=== PATIENT | female | born 1965 | race Caucasian/White ===

== ENCOUNTER 2020-12-29 04:59 | Inpatient (IN) ==
--- NOTE | 2020-12-13 11:31 | PAT Medication Instructions ---
Medication Instructions Date of Service December 13, 2020 Home Medications meloxicam 15 mg PO QAM simvastatin 10 mg PO HS venlafaxine 150 mg PO HS ASK your surgeon for instructions meloxicam 15 mg PO QAM Take evening before surgery simvastatin 10 mg PO HS venlafaxine 150 mg PO HS NOTHING TO EAT OR DRINK AFTER MIDNIGHT. Other Notes If you have any questions please call us at [phone] or [phone] or [phone] or [phone]
--- NOTE | 2020-12-13 11:44 | Anesthesiology Consultation ---
Date of Service December 13, 2020 Assessment & Plan (1) Encounter for pre-operative examination: COVID Status: As of 12/13 assessment, patient denies travel to endemic area, known exposure/sick contacts, or symptoms of COVID19. Patient advised to adhere to social distancing guidelines, wear a mask in public and avoid large crowds or unnecessary travel in the 2 weeks leading up to surgery. Preoperative COVID19 testing to be completed prior to surgery per surgeon's arrangements ([place] 2-3 days prior per pt). Patient encouraged to be extra cautious/conscientious with COVID precautions between COVID testing and surgery. Chart Review Chart Review: Acceptable Risk for Surgery (pending pcp clearance 12/15) and Patient seen in Pre Admission Testing Teaching & Discussion Instructed NPO after midnight before surgery, except medications with 15 cc of water. Medication instructions provided according to the PAT guidelines. History Surgery Operation Date: 12/29/20 08:50 Proposed Procedures p Left Total Hip Arthroplasty - Trevor Smith MD Height/Weight Height: 5 ft 8 in Weight: 90.1 kg Allergies Allergy/AdvReac Type Severity Reaction Status Date / Time No Known Allergies Allergy Verified 12/09/20 11:32 Medications Home Medications Medication Instructions Recorded Confirmed Last Taken meloxicam 15 mg PO QAM 12/09/20 12/09/20 Unknown simvastatin 10 mg PO HS 12/09/20 12/09/20 Unknown venlafaxine 150 mg PO HS 12/09/20 12/09/20 Unknown Past Medical History Medical History Anxiety Depression Hyperlipidemia Osteoarthritis Scoliosis Exercise / Class Metabolic Activity II 4-5 Yardwork/Stairs/Walk up hill Past Family History Family History Mother Breast cancer Past Surgical History Surgical History History of adenoidectomy History of arthroscopy right knee History of colonoscopy History of esophagogastroduodenoscopy (EGD) History of hysterectomy History of tonsillectomy History of tooth extraction Hx of removal of cyst from tailbone Past Anesthesia History No Hx of Anesthesia Complications and No Family Hx of Anesthesia Complications History of PONV No Hx of PONV and Hx of Motion Sickness Social History Smoking Status: Former smoker tobacco type: cigarettes Do You Dip or Chew Tobacco: No Smoking End Date: quit 11/2020 Hx Alcohol Use: Yes Alcohol type: beer and wine alcohol intake frequency: a few times a week Hx Substance Use: No substance use type: does not use Review of Systems Pt denies any recent chest pain, shortness of breath, palpitations, cough, fever, URI, or uncontrolled acid reflux. Physical Exam Vital Signs BP: 105/74 P: 70bpm SPO2: 98% RA T: 97.7 F R: 16 ENMT Mouth: no dental restorations, no chipped teeth and no loose teeth Thyromental Distance: < 3.5 Finger Breadths (3) Mallampati Class: II Neck normal visual inspection; neck extension not limited Respiratory normal respiratory effort, lungs clear to auscultation Cardiovascular RRR, no murmur, no edema Lab Results Anesthesia Preop Results Results Anesthesia Widget: WBC 9.30 K/uL (4.8-10.8) 12/13/20 Hgb 12.5 g/dL (12.0-16.0) 12/13/20 Hct 38.1 % (37-47) 12/13/20 Plt 303 K/uL (130-400) 12/13/20 Na 138 mmol/L (136-145) 12/13/20 K 3.7 mmol/L (3.5-5.1) 12/13/20 Cl 107 mmol/L (98-107) 12/13/20 CO2 26 mmol/L (21-32) 12/13/20 BUN 18 mg/dl (7-18) 12/13/20 Creat 0.75 mg/dl (0.6-1.2) 12/13/20 Glucose Level 87 mg/dl (70-99) 12/13/20 PT 10.5 Seconds (9.0-12.0) 12/13/20 INR 1.0 (0.9-1.1) 12/13/20 HA1c 5.4 % (4.5-5.6) 12/13/20 Urine Color Yellow 12/13/20 Urine Appearance Clear (Clear) 12/13/20 Urine pH 7.0 (4.5-7.5) 12/13/20 Urine Specific [place] 1.012 (1.000-1.030) 12/13/20 Urine Protein Negative (Negative) 12/13/20 Urine Glucose (UA) Negative (Negative) 12/13/20 Urine Ketones Negative (Negative) 12/13/20 Urine Blood Negative (Negative) 12/13/20 Urine Nitrite Negative (Negative) 12/13/20 Urine Bilirubin Negative (Negative) 12/13/20 Urine Urobilinogen Negative (Negative) 12/13/20 Urine Leukocyte Esterase Negative (Negative) 12/13/20 Blood Type AB Positive 12/13/20 Antibody Screen NEGATIVE 12/13/20 Testing Electrocardiogram Date: 12/13/20 Findings: + NSR @ (66bpm) Low voltage QRS. Borderline EKG
--- NOTE | 2020-12-14 16:12 | History & Physical Report ---
Date of Service December 14, 2020 Assessment & Plan Admission and Anticipated Discharge Date Admission Date: PRE-OP Diagnosis: Left hip osteoarthritis Planned Procedure: Left total hip arthroplasty Plan: Patient is scheduled to undergo this procedure at the [facility] on December with Dr. Trevor Smith. Risks and complications of the procedure such as: Infection, bleeding, pain, scarring, nerve blood vessel damage, weakness, wound problems, stiffness, incomplete relief of symptoms, hardware failure, hardware loosening, wear, fracture, tendon or ligament injury, dislocation, leg length inequality, blood clots, embolism, heart attack, stroke and were explained to the patient at her visit today by Dr. Smith. Informed consent from the procedure was obtained. Patient also understands risks of proceeding with surgical intervention during the COVID-19 pandemic. Currently she is asymptomatic and understands that she will need to be tested 2 to 3 days prior to the surgery. Patient is scheduled to meet with anesthesia at the hospital later this morning, and while there she will obtain a CBC with differential, complete metabolic panel, PT/INR, blood type and screen, urinalysis, urine culture and sensitivity, EKG, hemoglobin A1c and a nasal culture for MRSA. Patient states she has an appointment scheduled with her primary care provider Dr. Calvin early next week for her preoperative medical clearance. During today's visit we discussed total hip precautions, reviewed the total hip packet, talked about discharge planning, the use of antibiotics following joint placement surgery, lectures offered by [facility] in regards to joint replacement surgery via zoom. I also advised the patient to purchase a hip kit, I raised toilet seat, shower chair. She states she has a walker she will bring with her on the day of the surgery. She also has a cane that she will transition to once she is able to. I advised her she will need to use an abduction pillow for the first 6 weeks postoperatively. Patient will be discharged from the hospital with a prescription for narcotic pain medication. She states she would like to resume her meloxicam for postoperative pain and inflammation relief. I advised her that she will be on a baby aspirin twice daily for blood clot prevention. I also recommended that she can supplement with extra strength Tylenol for additional pain relief. Patient is scheduled for 2-week postoperative follow-up visit with Richie Castellanos PA-C on January 13 at 8:15 AM. Patient verbalized understanding of all information provided during today's visit. She thanked us for the care that she received. If she has questions or concerns should arise prior to her surgery, she will contact clinic. History of Present Illness Chief Complaint: Chief Complaint: Left hip pain Primary Care Provider: NO PCP History of Present Illness (including history relevant to procedure): This 55-year-old female presents the clinic today for preoperative history and physical. Patient was initially evaluated by Dr. Charisse maxwell in April of 2020 for persistent left hip pain, and was given the diagnosis of left hip arthritis at that time. She was referred for hip replacement then, but has tried to put it off as long as possible. She says her symptoms have worsened since then. She says she limps every time she walks now. She has to nonreciprocate stairs. She is taking Tylenol and meloxicam, which gives her some relief but nothing long lasting. She is having trouble gardening. She has been able to sleep through the night usually, but sometimes has some difficulty getting asleep. Review Of Systems: A 14 point review of systems is performed and is unremarkable except for those things stated in the HPI and past medical history. Past Medical History: Problems: Pre-op exam Arthritis of left hip Hypercholesterolemia Anxiety/depression Obesity Procedure History Procedure Procedure Date Comments Hysterectomy Right knee arthroscopy Tailbone cyst excision Tonsillectomy/adenoidectomy 2014 1988 1984 1969 Allergies and Sensitivities: NKA Family history: Heart disease, cancer, hypercholesterolemia Social history: Patient states that she was 1/2 pack/day smoker but quit in November 2020. She regularly consumes 5 alcoholic beverages per week. She denies any illicit drug use. Current Home Meds: (Last Updated 12/13 10:22) LORazepam (Ativan 0.5 mg oral tablet) meloxicam (meloxicam 15 mg oral tablet) simvastatin venlafaxine (venlafaxine 150 mg oral capsule, extended release) Allergies Allergy/AdvReac Type Severity Reaction Status Date / Time No Known Allergies Allergy Verified 12/09/20 11:32 Home Medications Medication Instructions Recorded Confirmed Type meloxicam 15 mg PO QAM 12/09/20 12/09/20 History simvastatin 10 mg PO HS 12/09/20 12/09/20 History venlafaxine 150 mg PO HS 12/09/20 12/09/20 History Past Med/Surg History Medical History Anxiety Depression Hyperlipidemia Osteoarthritis Scoliosis Surgical History History of adenoidectomy History of arthroscopy right knee History of colonoscopy History of esophagogastroduodenoscopy (EGD) History of hysterectomy History of tonsillectomy History of tooth extraction Hx of removal of cyst from tailbone Family History Mother Breast cancer Social History Smoking Status: Former smoker Second Hand Exposure: No; Hx Alcohol Use: Yes Alcohol type: beer and wine Hx Substance Use: No Preferred Language: Finnish Communication Ability: Effective Economics Lecturer Required: No Beliefs That Will Affect Care: None Current Living Situation: Spouse Feels Safe at Home: Yes Assistive Devices: Glasses Review of Systems All systems reviewed & are unremarkable except as noted in Subjective Physical Exam Physical Exam: Physical Exam: (relevant to the procedure, including heart and lung evaluation) General: Alert and oriented x3 with proper grooming and hygiene Eyes: Pupils are equal and reactive to light with accommodation. Extraocular movements are intact Throat: Deferred due to COVID-19 precautions Cardiac: Regular rate and rhythm with no murmurs or gallops appreciated Lungs: Clear to auscultation throughout with no wheezing, rales or rhonchi Abdomen: Obese, nondistended, nontender with normal active bowel sounds Extremities: Left hip shows skin to be intact. She has decreased range of motion on the left compared with the right. She has 105 degrees of flexion versus 130 on the other side. External rotation is 55 versus 65. Internal rotation is to 0 versus 30 on the other side. Positive impingement-scour tests on the left. [place]field is equivocal. No tenderness over the trochanteric bursa. Neurovascular intact. Neuro: Cranial nerves II through XII are intact with no motor or sensory deficit Skin: Normal in appearance with no open skin areas or discharge Results & Data ([facility]) Diagnostic Findings Studies (relevant to the procedure): X-rays done last January are reviewed. These show [id number] arthritis in the left hip.
[2020-12-29] MEDS ORDERED: TRANEXAMIC ACID 1,000 MG **IV Intra-op IV SCH (06:00)
[2020-12-29] MEDS ORDERED: traMADol HCL 50 MG TABLET PO SCH (06:00)
[2020-12-29] MEDS ORDERED: ACETAMINOPHEN 500 MG TAB PO SCH (06:00)
[2020-12-29] MEDS ORDERED: ceFAZolin 2000MG 2,000 MG/15 ML SYR IV SCH (06:00)
[2020-12-29] MEDS ORDERED: LR 500ML BOLUS, THEN 15ML/HR IV SCH (06:00)
[2020-12-29] MEDS ORDERED: LR 60ML/HR IV SCH (06:00)
[2020-12-29] MEDS ORDERED: TRANEXAMIC ACID 1,000 MG **IV Pre-op IV SCH (06:00)
[2020-12-29] MEDS ORDERED: dexAMETHasone 4 MG TAB PO SCH (06:00)
[2020-12-29] MEDS ORDERED: FAMOTIDINE 20 MG TAB PO SCH (06:00)
[2020-12-29] MEDS ORDERED: METOCLOPRAMIDE HCL 10 MG TABLET PO SCH (06:00)
[2020-12-29] MEDS ORDERED: Scopolamine 1 MG TDSY TD SCH (06:00)
[2020-12-29] MEDS ORDERED: ROPIVACAINE 0.5% HCL/PF 150 MG, BUPIVACAINE 0.75% MPF 20 ML, EPINEPHrine 0.15 MG, Ketor... INFIL SCH (06:00)
[2020-12-29] MEDS ORDERED: CeleBREX 200 MG CAP PO SCH ×2 (06:00→21:00)
[2020-12-29] MEDS ORDERED: ROPIVACAINE 0.5% HCL/PF 150 MG, BUPIVACAINE 0.75% MPF 20 ML, EPINEPHrine 30MG/30ML (OR ... INSTIL SCH (06:00)
[2020-12-29] MEDS ORDERED: BUPIVACAINE 0.5 % 5 MG/1 ML PF 10ML VIAL ONE (06:21)
[2020-12-29] MEDS ORDERED: fentaNYL citrate 100 MCG/2 ML VIAL ONE (06:43)
[2020-12-29] MEDS ORDERED: MIDAZOLAM HCL 1 MG/ML 2ML VIAL ONE (06:43)
[2020-12-29] MEDS ORDERED: ORTHO JOINT ANESTHETIC ONE (06:47)
--- NOTE | 2020-12-29 06:50 | History & Physical Bridge Note ---
Date of Service December 29, 2020 History & Physical Bridge Note I have examined the patient, reviewed the History & Physical and in the interval since the performance of the History & Physical I have noted the following changes of clinical significance: no changes noted
[2020-12-29] MEDS ORDERED: ePHEDrine sulfate 50 MG/ML AMP IV PRN (07:03)
[2020-12-29] MEDS ORDERED: PHENYLEPHRINE 100MCG/ML 5ML SYR IV PRN (07:03)
[2020-12-29] MEDS ORDERED: LABETALOL HCL IV 5 MG/ML 20ML IV PRN (07:03)
[2020-12-29] MEDS ORDERED: ONDANSETRON INJ 2 MG/ML 2 ML VIAL IV PRN ×2 (07:03→09:15)
[2020-12-29] MEDS ORDERED: HYDROmorphone INJ 1 MG/ML SYRINGE IV PRN (07:03)
[2020-12-29] MEDS ORDERED: ATROPINE SULFATE 0.1 MG/ML 10ML SYR IV PRN (07:03)
[2020-12-29] MEDS ORDERED: fentaNYL citrate 100 MCG/2 ML VIAL IV PRN (07:03)
[2020-12-29] MEDS ORDERED: LIDOCAINE 2% 2 ML VIAL/AMP(20MG/ML) INFIL ONE (07:46)
[2020-12-29] MEDS ORDERED: PHENYLEPHRINE 100MCG/ML 5ML SYR ONE (07:46)
[2020-12-29] MEDS ORDERED: PROPOFOL IV EMULSION 10 MG/ML 20 ML VIAL IV ONE ×2 (07:46→08:43)
--- NOTE | 2020-12-29 09:11 | Operative Report ---
Post Operative Report Pre & Post Diagnosis Operation Date: 12/29/20 07:00 Pre-Op Diagnosis: Left Hip Osteoarthritis Post-Op Diagnosis: Left Hip Osteoarthritis, Left hip Extracapsular cyst I identified the patient and participated in the time-out.: Yes Procedure Operation Date: 12/29/20 07:00 Actual Procedures p Left Total Hip Arthroplasty and Left Hip Cyst Excision(Left) - Trevor Smith MD Surgeon Trevor Smith MD Hospitality Host NATE Shah PA-C. No resident or fellow was available to assist. Estimated Blood Loss 100 Findings Consistent with Post-Op Diagnosis Specimens Femoral head Anesthesia Type Spinal MAC Complications none Disposition Accompanied Patient To Recovery: No Disposition: Recovery Room Indications 55-year-old female with left hip arthritis refractory to conservative managemen t. X-rays demonstrate [id number] arthritis. Body mass index elevated at 30.2. I had a long discussion with her about the risks and benefits of surgery, alternatives to surgery, and expected outcomes. After reviewing all these she elected proceed with surgery. All questions were answered. Informed sent was signed. Description of Procedure Patient was identified in the preoperative holding area and the surgical site, Left hip, was marked. A spinal anesthetic was placed, then the patient was brought back to the main operating room, placed in the operating table and moved into the lateral decubitus position. Axillary roll was placed. All bony prominences were padded. Perioperative antibiotics and tranexamic acid 1 gram IV were administered. Operative extremity was prepped and draped in the normal sterile fashion. Prior to incision a multidisciplinary timeout was called. All in the room were in agreement. We began by making an incision for a posterior approach to the hip. We dissected down through subcutaneous tissues to the level of the fascia. The fascia was incised in line with the incision. Charnley bow was placed. The trochanteric bursa was excised. The piriformis and short external rotators were dissected off the posterior aspect of the hip. A box cut was made in the capsule. The femoral head was dislocated. The femoral neck cut was made at our preoperative template. The acetabulum was then exposed. Her acetabulum was retroverted, with deficient superior bone and moderate medial osteophyte. The labrum was sharply excised. Contents of the cotyloid fossa were removed with electrocautery. We then began reaming at a size 8 mm less than our preoperative template. We reamed up by [address] way up to a size 52 mm cup. This gave us good bleeding cancellus bone circumferentially. The acetabulum was then irrigated out and dried. The real [place] Gription cup was then impacted down into position with 45 degrees of lateral opening and 25 degrees of anteversion. A single cancellous bone screw was placed up into the ilium. Excellent fixation was obtained. A trial 10 degree face changing +4 liner for a 32 mm femoral head was then inserted into the shell. Anterior osteophytes were removed. Next we turned our attention to the femur. The lateral neck was removed with a box osteotome. Intramedullary guide was used followed by the lateralizing reamer. We then reamed up to a size 3 [place] stem. We then broached all the way up to a size 3. We began trialing with a standard offset neck and a +5 head. Hip was reduced. Leg lengths were a little short so we upsized to a +9 head, and now the leg length was symmetric. In extension and external rotation, the femoral neck was impinging on the posterior lip of the trial liner, so we switched to a neutral liner. Now there was no impingement between the femoral neck and the liner in extension and external rotation. She was stable in the sleeper position. At 90 degrees of hip flexion the hip could be internally rotated 40 degrees before levering out of the cup. This stability exam was OK, but I thought it could be better with a high offset neck, so we switched to that, keeping the +9 head. Now she could be internally rotated 65 degrees before levering out of the cup, which I was very happy with. At this point, the hip was dislocated and the femoral trial was removed. The real +4 acetabular liner for a 32 femoral head was opened up and impacted into the shell. The femoral canal was irrigated and dried. The real size 3, high offset [place] femoral stem was opened up. This was impacted down into position. It sat at the same level as the femoral trial. Therefore the 32 mm ceramic femoral head with a +9 mm offset was opened up and gently impacted down onto the trunnion. The hip was atraumatically reduced. Another 1 gram of IV tranexamic acid was started prior to closure. The wound was irrigated out with sterile Betadine solution. The periarticular injection cocktail was then placed. The short external rotators, piriformis, and posterior capsule were repaired through drill holes in the greater trochanter using #2 Vicryl. The fascia was run with a looped #1 PDS. The subcutaneous layer was closed with #1 PDS. The dermal layer was closed with 2-0 Vicryl. Zip line was used for the skin followed by a Silverlon dressing. A compressive dressing was then placed. The patient was then rolled supine. Leg lengths were rechecked and were symmetric. An abduction pillow was placed. Sedation was lifted and the patient was transferred to recovery room in stable condition. Summary of implants: Depuy [place] Gription Acetabular Shell Sector Cup, 52 mm outer diameter [place] Cancellous bone screw, 6.5 x 25 mm [place] Altrx Polyethylene Acetabular Liner, +4 Neutral, with a 32 mm inner diameter DePuy [place] Femoral stem with [place], 12/14 taper, size 3 high offset 32 mm ceramic femoral head with high offset Postoperative course: Patient will be admitted to the hospital from the recovery room. Patient will be weightbearing as tolerated with posterior hip precautions. Aspirin for DVT prophylaxis I attest to the content of the Intraoperative Record and any orders documented therein. Any exceptions are noted below.
[2020-12-29] MEDS ORDERED: NALOXONE HCL 0.4 MG/1 ML VIAL/CARP IV PRN (09:15)
[2020-12-29] MEDS ORDERED: ALUMINUM/MAGNESIUM SUSP 30 ML UDC PO PRN (09:15)
[2020-12-29] MEDS ORDERED: bisacodyL 10 MG SUPP PR PRN (09:15)
[2020-12-29] MEDS ORDERED: METOCLOPRAMIDE HCL INJ 5 MG/ML 2 ML VIAL IV PRN (09:15)
[2020-12-29] MEDS ORDERED: oxyCODONE HCL IR 5 MG TAB (IMMEDIATE RELEASE) PO PRN (09:15)
[2020-12-29] MEDS ORDERED: MAGNESIUM HYDROXIDE SUSP 30 ML UDC PO PRN (09:15)
[2020-12-29] MEDS ORDERED: diphenhydrAMINE 50 MG/ML VIAL IV PRN (09:15)
--- NOTE | 2020-12-29 09:15 | Operative Report ---
Post Operative Report Pre & Post Diagnosis Operation Date: 12/29/20 07:00 Pre-Op Diagnosis: Left Hip Osteoarthritis Post-Op Diagnosis: Left Hip Osteoarthritis I identified the patient and participated in the time-out.: Yes Procedure Operation Date: 12/29/20 07:00 Actual Procedures p Left Total Hip Arthroplasty and Left Hip Cyst Excision(Left) - Trevor Smith MD Surgeon Trevor Smith MD Dock Guard NATE Shah PA-C. No resident or fellow was available to assist. Estimated Blood Loss 100 Findings Consistent with Post-Op Diagnosis Specimens femoral head Complications none Disposition Accompanied Patient To Recovery: No Disposition: Recovery Room Description of Procedure I was present during the entire procedure assisting with positioning, prepping, draping, wound retraction, wound closure, dressing and abduction pillow placement. I attest to the content of the Intraoperative Record and any orders documented therein. Any exceptions are noted below.
--- NOTE | 2020-12-29 10:05 | Anesthesiology Progress Note ---
Date of Service December 29, 2020 Anesthesia Post Procedure Vital Signs Vital Signs: Temp Pulse Pulse Resp BP BP Pulse Ox 12/29/20 09:45 67 20 97/61 L 96 12/29/20 09:35 36.5 C 66 18 94/61 L 97 12/29/20 09:25 70 14 94/64 L 100 12/29/20 09:15 36.5 C 73 16 96/58 L 100 12/29/20 06:21 66 18 109/77 99 12/29/20 05:50 36.5 C 76 16 111/72 99 Transfer of Care Handoff Completed per policy Notes Mental Status: alert / awake / arousable Patient Amnestic to Procedure: Yes Nausea / Vomiting: adequately controlled Pain: adequately controlled Airway Patency, RR, SpO2: stable & adequate BP & HR: stable & adequate Hydration State: stable & adequate Neuraxial Anesthesia: was administered and sensory block is resolving Anesthetic Complications: no major complications apparent and Pt Satisfied with anesthetic care
--- NOTE | 2020-12-29 10:08 | XRay Report ---
SINGLE VIEW PELVIS CLINICAL HISTORY: Postoperative examination. FINDINGS: An AP view of the hips and lower pelvis is compared to study dated 12/13/2020. The skeletal s tructures are osteopenic. No acute fracture is identified. A bipolar left hip arthroplasty is in near anatomic alignment. A single cortical lag screw transfixes the acetabular cup. Mild degenerative paulette nge is noted in the right hip. Subcutaneous gas and soft tissue edema overlying the left hip are expe cted postoperative changes. Phleboliths are noted in the pelvis. IMPRESSION: Expected postoperative findings status post left hip arthroplasty. No acute fracture is s een. Electronically signed by: Nain Armstrong M.D. 12/29/2020 10:06 AM
[2020-12-29] MEDS: SODIUM CHLORIDE 0.9% 1000ML 1,000 ML IV SCH ×2 (10:20→17:55)
[2020-12-29] MEDS: KETOROLAC TROMETHAMINE 15 MG/ML VIAL IV SCH ×3 (12:36→23:03)
[2020-12-29] MEDS: ACETAMINOPHEN 500 MG TAB PO SCH ×2 (15:04→23:03)
[2020-12-29] MEDS: Scopolamine CHECK PATCH PLACEMENT SCH ×2 (15:08→23:04)
[2020-12-29] MEDS: ceFAZolin 2000MG 2,000 MG/15 ML SYR IV SCH ×2 (15:08→23:02)
[2020-12-29] MEDS ORDERED: TRANEXAMIC ACID / 0.7% NACL 1,000 MG/100 ML BAG IV SCH (16:00)
[2020-12-29] MEDS: SIMVASTATIN 10 MG TAB PO SCH (20:25)
[2020-12-29] MEDS: DOCUSATE SODIUM 100 MG CAP PO SCH (20:25)
[2020-12-29] MEDS: VENLAFAXINE HCL XR 150 MG CAPXR PO SCH (20:25)
[2020-12-29] MEDS: SENNA 8.6 MG TAB PO SCH (20:25)
[2020-12-30] MEDS: KETOROLAC TROMETHAMINE 15 MG/ML VIAL IV SCH ×2 (05:30→20:22)
[2020-12-30] MEDS: ACETAMINOPHEN 500 MG TAB PO SCH ×3 (05:31→21:30)
[2020-12-30 06:27] LABS: Basophils # (auto) 0.02 K/uL (0-0.2); Basophils % (auto) 0.2 %; Eosinophils # (auto) 0.06 K/uL (0-0.5); Eosinophils % (auto) 0.5 %; Hematocrit (blood only) 30.3 % (37-47); Hemoglobin 9.9 g/dL (12.0-16.0); Immature Granulocytes # (auto) 0.04 K/uL (0.00-0.02); Immature Granulocytes % (auto) 0.3 %; Lymphocytes # (auto) 1.31 K/uL (1.2-3.4); Lymphocytes % (auto) 10.6 %; Mean Corpuscular Hemoglobin 28.1 pg (25-34); Mean Corpuscular Hgb Conc 32.7 g/dL (32-36); Mean Corpuscular Volume 86.1 fL (80-100); Mean Platelet Volume 9.7 fL (7.4-10.4); Monocytes # (auto) 1.05 K/uL (0.11-0.59); Monocytes % (auto) 8.5 %; Neutrophils # (auto) 9.85 K/uL (1.4-6.5); Neutrophils % (auto) 79.9 %; Platelet Count 261 K/uL (130-400); RDW Coefficient of Variation 13.8 % (11.5-14.5); RDW Standard Deviation 43.5 fL (36.4-46.3); Red Blood Count 3.52 M/uL (4.2-5.4); White Blood Count 12.33 K/uL (4.8-10.8)
[2020-12-30 06:58] LABS: BUN Creatinine Ratio 26.5 (10-20); Calcium 8.3 mg/dl (8.5-10.1); Creatinine Clr Calc Pharmacy 107.5 ml/min; Est GFR (African American) 113.8 ml/min; Est GFR (Non-African American) 98.2 ml/min; Potassium 3.7 mmol/L (3.5-5.1)
[2020-12-30] MEDS: Scopolamine CHECK PATCH PLACEMENT SCH ×3 (07:42→23:08)
[2020-12-30] MEDS ORDERED: dexAMETHasone 4 MG TAB PO SCH (08:00)
[2020-12-30] MEDS: ASPIRIN 81 MG ECTAB PO SCH ×2 (08:48→20:24)
[2020-12-30] MEDS: DOCUSATE SODIUM 100 MG CAP PO SCH ×2 (08:48→20:24)
[2020-12-30] MEDS: MULTIVITAMIN TAB PO SCH (08:48)
--- NOTE | 2020-12-30 10:38 | Orthopedic Progress Note ---
Date of Service December 30, 2020 Assessment & Plan (1) S/P total hip arthroplasty: Total hip precautions reviewed Weightbearing as tolerated with walker assistance Abduction pillow use x6 weeks Pain control with p.o. medication DVT prophylaxis with NEVIN stockings and aspirin. Ice with EZ wrap Keep Silverlon dressing in place Plan on discharge home today with in-home physical therapy Follow-up at [facility] orthopedics previously scheduled With questions contact the clinic at [phone] Admission and Anticipated Discharge Date Admission Date: December 29, 2020 Subjective This 55-year-old female is day 1 status post left total hip arthroplasty. Patient states that she is doing very well. She states that she has essentially no pain at this point. She states she has been able to move around the room with the aid of her walker and had no difficulty with physical therapy or occupational therapy this morning. She states she is ready to be discharged home. She plans on having in-home physical therapy for the first 2 weeks postoperatively. Currently she denies any chest pain, shortness of breath, fever, chills, sweats, lethargy, numbness or tingling in her left lower extremity. She also denies any nausea vomiting or urinating. Review of Systems Review of Systems: All systems reviewed & are unremarkable except as noted in Subjective Physical Exam Physical Exam: Left hip: Patient is easily able to perform a straight leg raise test. She is able to actively dorsi and plantarflex her foot without difficulty. Outer dressing was removed Silverlon is intact. Is clean and dry with no drainage over the central portion. She experiences no pain with logroll or Stinchfield test. She has no pain with light passive internal and external hip rotation. Knee range of motion from 0 to 90 degrees actively causes no pain. She is neurovascularly intact in the left lower extremity. Quad strength is 4-5. Peripheral pulses are 2+. Capillary fill is less than 2 seconds. Results & Data ([facility]) Vital Signs (Past 12 Hours) Vital Signs Temp Pulse Resp BP Pulse Ox 12/30/20 06:56 36.6 C 58 L 16 98/63 L 100 12/30/20 02:18 36.5 C 62 16 107/66 100 12/29/20 22:57 36.8 C 59 L 15 101/62 98 Laboratory Results 06/18/21 06/18/21 Range/Units 05:18 05:18 WBC 12.33 H (4.8-10.8) K/uL RBC 3.52 L (4.2-5.4) M/uL Hgb 9.9 L (12.0-16.0) g/dL Hct 30.3 L (37-47) % MCV 86.1 (80-100) fL MCH 28.1 (25-34) pg MCHC 32.7 (32-36) g/dL RDW Std Deviation 43.5 (36.4-46.3) fL RDW Coeff of Bertha 13.8 (11.5-14.5) % Plt Count 261 (130-400) K/uL MPV 9.7 (7.4-10.4) fL Immature Gran % (Auto) 0.3 % Neut % (Auto) 79.9 % Lymph % (Auto) 10.6 % Lowndes % (Auto) 8.5 % Eos % (Auto) 0.5 % Baso % (Auto) 0.2 % Neut # (Auto) 9.85 H (1.4-6.5) K/uL Lymph # (Auto) 1.31 (1.2-3.4) K/uL [place]own[place] # (Auto) 1.05 H (0.11-0.59) K/uL Eos # (Auto) 0.06 (0-0.5) K/uL Baso # (Auto) 0.02 (0-0.2) K/uL Immature Gran # (Auto) 0.04 H (0.00-0.02) K/uL Sodium 139 (136-145) mmol/L Potassium 3.7 (3.5-5.1) mmol/L Chloride 104 (98-107) mmol/L Carbon Dioxide 28 (21-32) mmol/L Anion Gap 7.0 (3-11) BUN 19 H (7-18) mg/dl Creatinine 0.70 (0.6-1.2) mg/dl Est Cr Clr Drug Dosing 107.5 ml/min Est GFR ( Amer) 113.8 ml/min Est GFR (Non-Af Amer) 98.2 ml/min BUN/Creatinine Ratio 26.5 H (10-20) Glucose 102 H (70-99) mg/dl Calcium 8.3 L (8.5-10.1) mg/dl
--- NOTE | 2020-12-30 10:44 | Discharge Summary ---
Date of Service December 30, 2020 Admission HPI Per Admitting Provider History of Present Illness (including history relevant to procedure): This 55-year-old female presents the clinic today for preoperative history and physical. Patient was initially evaluated by Dr. Mcqueen back in April of 2020 for persistent left hip pain, and was given the diagnosis of left hip arthritis at that time. She was referred for hip replacement then, but has tried to put it off as long as possible. She says her symptoms have worsened since then. She says she limps every time she walks now. She has to nonreciprocate stairs. She is taking Tylenol and meloxicam, which gives her some relief but nothing long lasting. She is having trouble gardening. She has been able to sleep through the night usually, but sometimes has some difficulty getting asleep. Review Of Systems: A 14 point review of systems is performed and is unremarkable except for those things stated in the HPI and past medical history. Past Medical History: Problems: Pre-op exam Arthritis of left hip Hypercholesterolemia Anxiety/depression Obesity Procedure History Procedure Procedure Date Comments Hysterectomy Right knee arthroscopy Tailbone cyst excision Tonsillectomy/adenoidectomy 2015 1988 1984 1969 Allergies and Sensitivities: NKA Family history: Heart disease, cancer, hypercholesterolemia Social history: Patient states that she was 1/2 pack/day smoker but quit in November 2020. She regularly consumes 5 alcoholic beverages per week. She denies any illicit drug use. Current Home Meds: (Last Updated 12/13 10:22) LORazepam (Ativan 0.5 mg oral tablet) meloxicam (meloxicam 15 mg oral tablet) simvastatin venlafaxine (venlafaxine 150 mg oral capsule, extended release) Admission Exam Per Admitting Provider Physical Exam: (relevant to the procedure, including heart and lung evaluation) General: Alert and oriented x3 with proper grooming and hygiene Eyes: Pupils are equal and reactive to light with accommodation. Extraocular movements are intact Throat: Deferred due to COVID-19 precautions Cardiac: Regular rate and rhythm with no murmurs or gallops appreciated Lungs: Clear to auscultation throughout with no wheezing, rales or rhonchi Abdomen: Obese, nondistended, nontender with normal active bowel sounds Extremities: Left hip shows skin to be intact. She has decreased range of motion on the left compared with the right. She has 105 degrees of flexion versus 130 on the other side. External rotation is 55 versus 65. Internal rotation is to 0 versus 30 on the other side. Positive impingement-scour tests on the left. Stinchfield is equivocal. No tenderness over the trochanteric bursa. Neurovascular intact. Neuro: Cranial nerves II through XII are intact with no motor or sensory deficit Skin: Normal in appearance with no open skin areas or discharge Principal Diagnosis Left hip osteoarthritis Discharge Exam Left hip: Patient is easily able to perform a straight leg raise test. She is able to actively dorsi and plantarflex her foot without difficulty. Outer dressing was removed Silverlon is intact. Is clean and dry with no drainage over the central portion. She experiences no pain with logroll or Stinchfield test. She has no pain with light passive internal and external hip rotation. Knee range of motion from 0 to 90 degrees actively causes no pain. She is neurovascularly intact in the left lower extremity. Quad strength is 4-5. Peripheral pulses are 2+. Capillary fill is less than 2 seconds. Discharge Data Allergies Allergy/AdvReac Type Severity Reaction Status Date / Time No Known Allergies Allergy Verified 12/29/20 05:38 Procedures Performed Operation Date: 12/29/20 07:00 Actual Procedures p Left Total Hip Arthroplasty - uncemented and Left Hip Cyst Excision(Left) - Trevor Smith MD Hospital Course (1) S/P total hip arthroplasty: Patient did very well overnight. On POD 1, she sustained an anterior hip dislocation, and was take back to the operating room for a closed reduction and revision total hip athroplasty. She did well after this, and discharged home the following day. She plans on doing in-home physical therapy with [facility] for the first 2 weeks postoperatively. Total hip precautions reviewed Weightbearing as tolerated with walker assistance Abduction pillow use x6 weeks Pain control with p.o. medication DVT prophylaxis with NEVIN stockings and aspirin. Ice with EZ wrap Keep Silverlon dressing in place Plan on discharge home today with in-home physical therapy Follow-up at [facility] orthopedics previously scheduled With questions contact the clinic at [phone] Total Time Total Time Spent Total Time Spent (In Minutes): 20 minutes Total Time Includes: Examination of the Patient, Discharge Planning, Medication Reconciliation and Communication With Other Providers Discharge Plan Discharge Items Patient Disposition: Home - Home Health Services Reason For Visit: Left Hip Osteoarthritis Discharge Diagnosis: Left Hip Osteoarthritis Activity: As commented below Lifting: None Bathing: Keep incision dry Bathing Comment: May shower tomorrow Sexual Activity: Wait until after follow-up appointment Exercise/Sports: Wait until after follow-up appointment Driving/Machine Use: No driving until cleared by rotating equipment specialist Weightbearing: Left weightbearing Weightbearing Comment: as tolerated with walker assistance and hip brace Non-emergency contact: Primary Care Provider Call non-emergency contact if: you have any medication questions, your pain is not controlled, your temperature is above 101.5, your wound has increased drainage and your wound pain has increased Follow-up/Referrals: Maddie Calvin M.D. [Primary Care Provider] - Diet: Regular Addtl Attending Provider Instructions: Post-operative Instructions Dear Patient and Family/Friends, Before you are discharged from the hospital, it is important to know what to expect when you get home after surgery. To that end, we have created this sheet of discharge instructions which covers many commonly asked questions. Make sure you go through this sheet in its entirety with your nurse before you are discharged. Please note that we will go over the specifics of your surgery and recovery when you return for your first post-operative visit. Sincerely, Dr. Smith Medications 1. Oxycodone 5 mg: take 1-2 tabs by mouth every 4-6 hours as needed for post operative pain relief. A prescription for 30 tabs will be sent to your pharmacy. 2. Diclofenac Sodium 75 mg: take one tab twice daily for 30 days post operatively for pain and inflammation relief. Do not use Meloxicam while taking this medication. A prescription for this will be sent to your pharmacy with 1 refill. 3. Aspirin 81 mg: take one tab twice daily for 30 days post operatively for blood clot prevention. Please purchase. 4. Extra Strength Tylenol 500 mg: take 2 tabs every 6-8 hours as needed for additional supplemental pain relief. Please puchase. Pain Expect to be in a fair amount of pain after surgery. Remember, our goal is not to eliminate your pain, but to make it tolerable. It is a good idea to stay ahead of your pain by taking the medications you were prescribed once you get home. Typically, the pain starts improving 3-7 days after surgery. You should start weaning off the narcotic pain medication (oxycodone, hydrocodone, hydromorphone, morphine) as soon as your pain improves. Please call our office if your pain is not adequately controlled. Ice Ice your operative site at least 5 times a day for 15-30 minutes at a time. Make sure you have a thin cloth between the ice or cooling unit and your skin to prevent rodriguez bite. This is especially important if you received a nerve block. Continue icing your operative site for the first 5-7 days after surgery, then as needed. Diet/Nausea/Vomiting Start by drinking clear liquids and eating crackers. If you can tolerate this, then you may resume your normal diet. If you feel nauseated or vomit, take Zofran/ondansetron (if prescribed). Please call our office if you have intractable nausea or vomiting, or, if after hours, you may go to the Emergency Room for help. Constipation Constipation is a common side effect of narcotic pain medication. If you have not had a bowel movement within 2 days after surgery, we recommend purchasing an over the counter laxative such as Milk of Magnesia, Dulcolax, or Miralax from a local pharmacy, and taking it as instructed. Call our clinic if any questions. Nerve block The anesthesia team sometimes places a nerve block to help with post-operative pain control. This results in significant numbness and inability to move the extremity. The nerve block usually wears off in 8-12 hours, but sometimes can last up to 24 hours. Please call our office if you are still unable to move your extremity after 24 hours, unless you received a pain pump to take home. Nerve blocks typically wear off quickly, so start taking pain medication as soon as you start feeling soreness near your surgical site. Weight bearing and Range of Motion. Do not bear any weight through your operative extremity immediately after surgery. If you had upper extremity surgery, do not lift anything with that arm. If you are in a knee brace, keep it locked in place until your follow-up. We will discuss your weight bearing, range of motion, and lifting restrictions in detail at your first post-operative appointment. Continuous Passive Motion (CPM) Machine If you were prescribed a CPM machine, it will start after your first post- operative appointment, at which time we will give you instructions on the range of motion settings and duration of treatment Physical therapy You will be given a prescription for physical therapy or occupational therapy at your first post-operative appointment. Typically, patients start therapy within 1 week of surgery Wound care and showering We will inspect your wound at your first post-operative visit, and may do a dressing change at that time. Most patients will be in a water-proof dressing that is removed 14 days after surgery. It is normal to see some dried blood on the dressing. Do not remove your dressing, paper strips or sutures yourself unless you are given permission. Showering is allowed the day after surgery. Do not scrub or remove any dressings. The wound should not be submerged underwater (i.e. in a bathtub or pool) until 4 weeks after surgery NEVIN stockings If you were given white stockings, these are to be worn at all times except to shower (on both legs) for the first 2 weeks after surgery. Driving You may not drive while taking narcotic pain medication or while in a cast, splint, sling or brace. You, the patient, need to make the final determination about when you are safe to drive, however, the earliest you may consider driving after surgery is below: Hand/Wrist/Elbow Surgery: 3 days Shoulder Surgery: 2 weeks Hip,/Knee/Ankle Surgery: 4 weeks Fracture repair: 6 weeks Return to Work Your return to work depends on what surgery was done and what type of work you do. Please bring any paperwork your employer needs completed to your first post-operative visit. Also, bring a description of your job duties, as this helps us to understand what risks you may face at work. Travel Avoid long distance travel (greater than 1 hour) in airplanes and cars for the first 6 weeks after surgery. If you must travel, you need to have a Doppler ultrasound done before you travel to rule out a blood clot in your legs. Follow-up You should have a follow-up appointment already scheduled 1-2 days after surgery. If not, please contact our office to make this appointment before you leave the hospital. When to call the office It is normal to have swelling and bruising in the limb that was operated on. This will improve with time. It is also normal to have fevers for the first 2 days after surgery. Reasons you should call your doctor include: Uncontrolled pain; Nausea, vomiting, or constipation that does not improve with medication; Fevers over 101.5, chills, sweats; Drainage or bleeding from the wound; Foul odor; Spreading areas of redness; Any other concerns Pending Studies at Discharge: No Stand-Alone Forms: My [facility] Medications and DC Order Prescriptions: New oxycodone 5 mg tablet 5 mg PO Q4H MDD Initial prescription Qty: 30 RF: 0 diclofenac sodium 75 mg tablet,delayed release (DR/EC) 75 mg PO BID 30 Days Qty: 60 RF: 1 Continued simvastatin 10 mg Tablet 10 mg PO HS RF: 0 venlafaxine 150 mg Capsule,Extended Release 24hr 150 mg PO HS RF: 0 Discontinued meloxicam 15 mg Tablet 15 mg PO QAM RF: 0 Discharge Orders: Discharge Order (Routine); Ordered 12/30/20 Ordered By: Barrie Sood/Other Patient Handouts: DVT Post Op Prevention Admission Data Admit Date/Time: 12/30/20 13:42 Attending Provider: Trevor Smith Admit Provider: Trevor Smith Primary Care Provider: Maddie Calvin Other Interventions: Discharge Summary Assessment (RN) Last Done: 12/31/20 13:51
--- NOTE | 2020-12-30 12:23 | XRay Report ---
XR hip 1V LT w pelvis CLINICAL HISTORY: s/p total hip arthroplast. Possible dislocation. COMPARISON: December 29, 2020 DISCUSSION: No definite acute fracture is seen. Dislocation of the left prosthetic hip joint with femoral component projecting anteriorly and superio rly to the acetabular component of the joint. Large amount of stool and calcifications are again seen within pelvic region. IMPRESSION: Dislocation of prosthetic left hip joint as detailed above. ACT 112: Negative or not required by law. The above report was generated using voice recognition software. It may contain grammatical, syntax o r spelling errors. Electronically signed by: Joaquina Ronquillo DO 12/30/2020 12:22 PM
[2020-12-30] MEDS ORDERED: MoRPHine SULFATE 4 MG/ML 1 ML CARP\\VIAL IV STA (13:01)
[2020-12-30] MEDS ORDERED: LORazepam 2 MG/4 ML VIAL IV STA (13:02)
--- NOTE | 2020-12-30 13:28 | Orthopedic Progress Note ---
Date of Service December 30, 2020 Assessment & Plan (1) Anterior dislocation of left hip: S: Patient felt a small pop in her left, operative hip, while her NEVIN stockings were being put on about 1 hour ago, then when she tried to stand up, she felt a big pop with inability to ambulate and pain in her groin. X-rays were done showing an anterior dislocation of her left total hip. O: Patient seen and examined. She is in only mild discomfort at present. Has not had any pain medications at all today. Sensation intact to light touch entire LLE. Fires EHL, FHL, tibant, GS. Toes w/wp. Results reviewed: X-rays show anterior total hip dislocation. Cup is too anteverted, which is a risk factor for recurrent anterior hip disocation. A: POD 1 s/p L total hip arthroplasty with L anterior dislocation with over- anteverted cup. P: Discussed x-ray findings with patient. Treatment options discussed, including revision left total hip versus closed reduction. I recommend we do a revision left total hip today while her wound is still fresh and components have not ingrown, as she is at risk for recurrent instability with only a closed reduction. Reviewed risks/benefits of surgery, alternatives, and expected outcomes. All questions answered. Informed consent signed. Patient is reasonably comfortable at present. She will receive some oral pain medication to help. Proceed to OR this afternoon as soon as equipment is ready. Re-admit to floor after surgery. Present on Admission?: No Admission and Anticipated Discharge Date Admission Date: December 29, 2020 Results & Data ([facility]) Vital Signs (Past 12 Hours) Vital Signs Temp Pulse Resp BP Pulse Ox 12/30/20 11:31 36.3 C L 69 16 105/66 100 12/30/20 06:56 36.6 C 58 L 16 98/63 L 100 12/30/20 02:18 36.5 C 62 16 107/66 100
[2020-12-30] MEDS ORDERED: SODIUM CHLORIDE 0.9% 1000ML 1,000 ML IV SCH (14:00)
[2020-12-30] MEDS ORDERED: ROPIVACAINE 0.5% HCL/PF 150 MG, BUPIVACAINE 0.75% MPF 20 ML, EPINEPHrine 0.15 MG, Ketor... INFIL SCH (14:00)
[2020-12-30] MEDS ORDERED: ceFAZolin 2000MG 2,000 MG/15 ML SYR IV SCH (14:00)
[2020-12-30] MEDS ORDERED: METOCLOPRAMIDE HCL 10 MG TABLET PO SCH (14:00)
[2020-12-30] MEDS ORDERED: TRANEXAMIC ACID / 0.7% NACL 1,000 MG/100 ML BAG IV SCH (14:00)
[2020-12-30] MEDS ORDERED: BUPIVACAINE 0.5 % 5 MG/1 ML PF 10ML VIAL ONE (14:46)
--- NOTE | 2020-12-30 14:46 | Anesthesiology Consultation ---
Date of Service December 30, 2020 Assessment & Plan (1) Encounter for pre-operative examination: Chart Review Chart Review: Acceptable Risk for Surgery History Surgery Operation Date: 12/29/20 07:00 Proposed Procedures p Left Total Hip Arthroplasty - Trevor Smith MD Operation Date: 12/30/20 08:50 Proposed Procedures p Left Total Hip Revision - Trevor Smith MD Height/Weight Height: 5 ft 8 in Weight: 89.4 kg Allergies Allergy/AdvReac Type Severity Reaction Status Date / Time No Known Allergies Allergy Verified 12/29/20 05:38 Medications Home Medications Medication Instructions Recorded Confirmed Last Taken simvastatin 10 mg PO HS 12/09/20 12/29/20 12/28/20 20:00 venlafaxine 150 mg PO HS 12/09/20 12/29/20 12/28/20 20:00 diclofenac sodium 75 mg PO BID 30 Days #60 tab 12/30/20 Unknown oxycodone 5 mg PO Q4H #30 tab MDD Initial 12/30/20 Unknown prescription Active Medications Generic Name Dose Route Start Last Admin Trade Name Freq PRN Reason Stop Dose Admin Acetaminophen 1,000 mg 12/29/20 14:00 12/30/20 14:33 Acetaminophen 500 Mg Tab PO 01/28/21 13:59 Not Given Q8 JILLIAN Aspirin 81 mg 12/30/20 09:00 12/30/20 08:48 Aspirin 81 Mg Ectab PO 01/29/21 08:59 81 mg BID JILLIAN Administration Docusate Sodium 100 mg 12/29/20 21:00 12/30/20 08:48 Docusate Sodium 100 Mg Cap PO 01/28/21 20:59 100 mg BID JILLIAN Administration Miscellaneous 1 ea 12/29/20 16:00 12/30/20 07:42 Scopolamine Check Patch Placement N/A 01/01/21 07:59 1 ea QS JILLIAN Administration Multivitamins 1 tab 12/30/20 09:00 12/30/20 08:48 Multivitamin Tab PO 01/29/21 08:59 1 tab QAM JILLIAN Administration Oxycodone HCl 5 - 10 mg 12/29/20 09:15 12/30/20 13:20 Oxycodone Hcl Ir 5 Mg Tab (Immediate Release) PO 01/12/21 09:14 10 mg Q4H PRN Administration Pain or Pre PT Sennosides 17.2 mg 12/29/20 21:00 12/29/20 20:25 Senna 8.6 Mg Tab PO 01/28/21 20:59 17.2 mg HS JILLIAN Administration Simvastatin 10 mg 12/29/20 21:00 12/29/20 20:25 Simvastatin 10 Mg Tab PO 01/28/21 20:59 10 mg HS JILLIAN Administration Venlafaxine HCl 150 mg 12/29/20 21:00 12/29/20 20:25 Venlafaxine Hcl Xr 150 Mg Capxr PO 01/28/21 20:59 150 mg HS JILLIAN Administration NPO Date Last Intake of Fluids: 12/28/20 Time Last Intake of Fluids: 21:00 Last Intake of Fluids Comment: sips with meds this morning Date Last Intake of Solids: 12/28/20 Time Last Intake of Solids: 18:00 Past Medical History Medical History Anxiety Depression Hyperlipidemia Osteoarthritis Scoliosis Past Family History Family History Mother Breast cancer Past Surgical History Surgical History History of adenoidectomy History of arthroscopy right knee History of colonoscopy History of esophagogastroduodenoscopy (EGD) History of hysterectomy History of tonsillectomy History of tooth extraction Hx of removal of cyst from tailbone Social History Smoking Status: Former smoker tobacco type: cigarettes Do You Dip or Chew Tobacco: No Smoking End Date: quit 11/2020 Hx Alcohol Use: Yes Alcohol type: beer and wine alcohol intake frequency: a few times a week Hx Substance Use: No substance use type: does not use Physical Exam Vital Signs Last Vital Signs Temp 36.3 C L 12/30/20 11:31 Pulse 69 12/30/20 11:31 Resp 16 12/30/20 11:31 BP 105/66 12/30/20 11:31 Pulse Ox 100 12/30/20 11:31 Testing Laboratory Results 12/30/20 05:18 12/30/20 05:18
[2020-12-30] MEDS ORDERED: PROPOFOL IV EMULSION 10 MG/ML 20 ML VIAL IV ONE (14:53)
[2020-12-30] MEDS ORDERED: MIDAZOLAM HCL 1 MG/ML 2ML VIAL ONE (14:53)
[2020-12-30] MEDS ORDERED: LIDOCAINE 2% 2 ML VIAL/AMP(20MG/ML) INFIL ONE (14:53)
[2020-12-30] MEDS ORDERED: fentaNYL citrate 100 MCG/2 ML VIAL ONE ×2 (14:54→16:23)
[2020-12-30] MEDS ORDERED: ATROPINE SULFATE 0.1 MG/ML 10ML SYR IV PRN (14:59)
[2020-12-30] MEDS ORDERED: ONDANSETRON INJ 2 MG/ML 2 ML VIAL IV PRN ×2 (14:59→18:11)
[2020-12-30] MEDS ORDERED: KETOROLAC 30 MG/ML VIAL IV PRN (14:59)
[2020-12-30] MEDS ORDERED: PROMETHAZINE HCL 6.25 MG in SODIUM CHLORIDE 0.9% 50 ML IV PRN (14:59)
[2020-12-30] MEDS ORDERED: ORTHO JOINT ANESTHETIC ONE (15:36)
[2020-12-30] MEDS ORDERED: DEXAMETHASONE SOD INJ 4 MG/ML VIAL ONE (16:45)
[2020-12-30] MEDS ORDERED: GLYCOPYRROLATE 0.2 MG/ML VIAL ONE (16:45)
[2020-12-30] MEDS ORDERED: ROCURONIUM BROMIDE 10 MG/ML 5 ML VIAL IV ONE (16:45)
[2020-12-30] MEDS ORDERED: NEOSTIGMINE METHYLSULFATE 1 MG/ML 10ML VIAL ONE (16:45)
[2020-12-30] MEDS ORDERED: ONDANSETRON INJ 2 MG/ML 2 ML VIAL ONE (16:45)
[2020-12-30] MEDS ORDERED: bisacodyL 10 MG SUPP PR PRN (18:11)
[2020-12-30] MEDS ORDERED: MAGNESIUM HYDROXIDE SUSP 30 ML UDC PO PRN (18:11)
[2020-12-30] MEDS ORDERED: oxyCODONE HCL IR 5 MG TAB (IMMEDIATE RELEASE) PO PRN (18:11)
[2020-12-30] MEDS ORDERED: NALOXONE HCL 0.4 MG/1 ML VIAL/CARP IV PRN (18:11)
[2020-12-30] MEDS ORDERED: diphenhydrAMINE 50 MG/ML VIAL IV PRN (18:11)
[2020-12-30] MEDS ORDERED: METOCLOPRAMIDE HCL INJ 5 MG/ML 2 ML VIAL IV PRN (18:11)
[2020-12-30] MEDS ORDERED: ALUMINUM/MAGNESIUM SUSP 30 ML UDC PO PRN (18:11)
--- NOTE | 2020-12-30 18:11 | Post Operative Brief Note ---
Immediate Post Op Note v1 Date of Surgery December 30, 2020 Pre & Post Diagnosis Operation Date: 12/29/20 07:00 Pre-Op Diagnosis: Left Hip Osteoarthritis Post-Op Diagnosis: Left Hip Osteoarthritis Operation Date: 12/30/20 08:50 Pre-Op Diagnosis: Anterior dislocation of left hip Post-Op Diagnosis: Anterior dislocation of left hip I identified the patient and participated in the time-out.: Yes Procedure Operation Date: 12/29/20 07:00 Actual Procedures p Left Total Hip Arthroplasty - uncemented and Left Hip Cyst Excision(Left) - Trevor Smith MD Operation Date: 12/30/20 08:50 Actual Procedures p Left Total Hip Revision(Left) - Trevor Smith MD Surgeon Trevor Smith MD Production Bow Maker NATE Shah PA-C. No resident or fellow was available to assist. Estimated Blood Loss 100 Findings Consistent with Post-Op Diagnosis Anesthesia Type Spinal MAC Complications none Disposition Accompanied Patient To Recovery: No Disposition: Recovery Room
--- NOTE | 2020-12-30 18:11 | Operative Report ---
Post Operative Report Pre & Post Diagnosis Operation Date: 12/29/20 07:00 Pre-Op Diagnosis: Left Hip Osteoarthritis Post-Op Diagnosis: Left Hip Osteoarthritis Operation Date: 12/30/20 08:50 Pre-Op Diagnosis: Anterior dislocation of left hip Post-Op Diagnosis: Anterior dislocation of left hip I identified the patient and participated in the time-out.: Yes Procedure Operation Date: 12/29/20 07:00 Actual Procedures p Left Total Hip Arthroplasty - uncemented and Left Hip Cyst Excision(Left) - Trevor Smith MD Operation Date: 12/30/20 08:50 Actual Procedures p Left Total Hip Revision(Left) - Trevor Smith MD Surgeon Trevor Smith Limited Radiology Technician NATE Shah PA-C. No resident or fellow was available to assist. Estimated Blood Loss 100 Findings Consistent with Post-Op Diagnosis Specimens none Complications none Disposition Accompanied Patient To Recovery: No Disposition: Recovery Room Description of Procedure I was present during the entire procedure assisting with positioning, prepping, draping, wound retraction, closure, dressing and hip brace placement. No fellow present. Please see Dr. Smith procedure note for specifics of the case. I attest to the content of the Intraoperative Record and any orders documented therein. Any exceptions are noted below.
[2020-12-30] MEDS: HYDROmorphone INJ 1 MG/ML SYRINGE IV PRN ×3 (18:37→18:50)
--- NOTE | 2020-12-30 18:38 | Anesthesiology Progress Note ---
Date of Service December 30, 2020 Anesthesia Post Procedure Vital Signs Vital Signs: Temp Pulse Pulse Resp BP Pulse Ox 12/30/20 18:20 67 17 105/57 L 100 12/30/20 18:12 36.4 C L 67 18 115/64 100 12/30/20 14:45 37.1 C 70 18 105/63 100 12/30/20 11:31 36.3 C L 69 16 105/66 100 12/30/20 06:56 36.6 C 58 L 16 98/63 L 100 12/30/20 02:18 36.5 C 62 16 107/66 100 12/29/20 22:57 36.8 C 59 L 15 101/62 98 12/29/20 19:35 37.1 C 62 18 97/63 L 97 Transfer of Care Handoff Completed per policy Notes Mental Status: alert / awake / arousable Patient Amnestic to Procedure: Yes Nausea / Vomiting: adequately controlled Pain: adequately controlled Airway Patency, RR, SpO2: stable & adequate BP & HR: stable & adequate Hydration State: stable & adequate Anesthetic Complications: no major complications apparent and Pt Satisfied with anesthetic care
--- NOTE | 2020-12-30 19:30 | XRay Report ---
XR pelvis 1-2V routine CLINICAL HISTORY: Postop left hip prosthesis. COMPARISON STUDY: Left hip 12/30/2020. FINDINGS: There is a left total hip arthroplasty. Hardware appears intact. No fracture or dislocation within the pelvis or hips. Soft tissue swelling and gas within the left hip due to the recent postop erative change. IMPRESSION: Status post left total hip arthroplasty. No evidence for hardware complication. ACT 112: Negative or not required by law. Electronically signed by: Bob Nixon M.D. 12/30/2020 7:28 PM
--- NOTE | 2020-12-30 19:31 | Fluoroscopy Report ---
FL hip LT 2-3V CLINICAL HISTORY: Left hip prosthesis. Intraoperative study. COMPARISON STUDY: Left hip 12/30/2020. FLUOROSCOPY TIME: 10 seconds. FINDINGS: 5 fluoroscopic spot images of the left hip demonstrate a left total hip arthroplasty. Hardw are appears intact. No fracture or dislocation. IMPRESSION: Fluoroscopy provided for left total hip arthroplasty. ACT 112: Negative or not required by law. Electronically signed by: Bob Nixon M.D. 12/30/2020 7:30 PM
[2020-12-30] MEDS: SODIUM CHLORIDE 0.9% 1000ML 1,000 ML IV SCH (20:20)
[2020-12-30] MEDS: VENLAFAXINE HCL XR 150 MG CAPXR PO SCH (20:23)
[2020-12-30] MEDS: SIMVASTATIN 10 MG TAB PO SCH (20:23)
[2020-12-30] MEDS: SENNA 8.6 MG TAB PO SCH (20:24)
[2020-12-30] MEDS ORDERED: DOCUSATE SODIUM 100 MG CAP PO SCH (21:00)
[2020-12-30] MEDS ORDERED: SENNA 8.6 MG TAB PO SCH (21:00)
[2020-12-30] MEDS ORDERED: ASPIRIN 81 MG ECTAB PO SCH (21:00)
[2020-12-30] MEDS ORDERED: ACETAMINOPHEN 500 MG TAB PO SCH (22:00)
[2020-12-30] MEDS: ceFAZolin 2000MG 2,000 MG/15 ML SYR IV SCH (23:06)
[2020-12-31] MEDS ORDERED: TRANEXAMIC ACID / 0.7% NACL 1,000 MG/100 ML BAG IV SCH
[2020-12-31] MEDS: KETOROLAC TROMETHAMINE 15 MG/ML VIAL IV SCH ×2 (01:23→07:36)
[2020-12-31] MEDS: SODIUM CHLORIDE 0.9% 1000ML 1,000 ML IV SCH (05:18)
[2020-12-31] MEDS: ACETAMINOPHEN 500 MG TAB PO SCH (05:23)
[2020-12-31 05:49] LABS: Basophils # (auto) 0.01 K/uL (0-0.2); Basophils % (auto) 0.1 %; Hematocrit (blood only) 25.1 % (37-47); Hemoglobin 8.2 g/dL (12.0-16.0); Immature Granulocytes # (auto) 0.03 K/uL (0.00-0.02); Immature Granulocytes % (auto) 0.2 %; Lymphocytes # (auto) 1.08 K/uL (1.2-3.4); Lymphocytes % (auto) 8.6 %; Mean Corpuscular Hemoglobin 28.1 pg (25-34); Mean Corpuscular Hgb Conc 32.7 g/dL (32-36); Mean Platelet Volume 9.5 fL (7.4-10.4); Monocytes # (auto) 0.98 K/uL (0.11-0.59); Monocytes % (auto) 7.8 %; Neutrophils # (auto) 10.52 K/uL (1.4-6.5); Neutrophils % (auto) 83.3 %; Platelet Count 231 K/uL (130-400); RDW Coefficient of Variation 14.3 % (11.5-14.5); RDW Standard Deviation 44.7 fL (36.4-46.3); Red Blood Count 2.92 M/uL (4.2-5.4); White Blood Count 12.62 K/uL (4.8-10.8)
[2020-12-31 06:16] LABS: BUN Creatinine Ratio 26.6 (10-20); Calcium 7.8 mg/dl (8.5-10.1); Creatinine Clr Calc Pharmacy 127.5 ml/min; Est GFR (African American) 120.4 ml/min; Est GFR (Non-African American) 103.9 ml/min
[2020-12-31] MEDS: Scopolamine CHECK PATCH PLACEMENT SCH (07:39)
[2020-12-31] MEDS: ceFAZolin 2000MG 2,000 MG/15 ML SYR IV SCH (07:43)
[2020-12-31] MEDS ORDERED: dexAMETHasone 4 MG TAB PO SCH (08:00)
[2020-12-31] MEDS ORDERED: MULTIVITAMIN TAB PO SCH (09:00)
[2020-12-31] MEDS: DOCUSATE SODIUM 100 MG CAP PO SCH (10:33)
[2020-12-31] MEDS: ASPIRIN 81 MG ECTAB PO SCH (10:33)
[2020-12-31] MEDS: MULTIVITAMIN TAB PO SCH (11:11)
[2020-12-31] MEDS ORDERED: CeleBREX 200 MG CAP PO SCH (21:00)
--- NOTE | 2021-01-02 07:14 | Operative Report (OR) ---
DATE OF PROCEDURE: 12/30/2020 PREOPERATIVE DIAGNOSIS: Left anterior hip prosthetic dislocation. POSTOPERATIVE DIAGNOSIS: Left anterior hip prosthetic dislocation. OPERATION PERFORMED: 1. Closed reduction, left prosthetic dislocation. 2. Revision left total hip arthroplasty. SURGEON: Trevor Smith MD. FRAME OPERATOR: Catie Shah PA-C. No resident or fellow was available to assist. ESTIMATED BLOOD LOSS: 100 mL. INTRAVENOUS FLUIDS: 1600 mL of crystalloid. SPECIMENS: None. COMPLICATIONS: None. IMPLANTS: 1. DePuy Elwell acetabular sector Gription cup, 54 mm outer diameter. 2. Elwell 6.5 x 35 mm screw. 3. A 36 x 54 neutral liner, AltrX polyethylene with a 54 mm outer diameter. 4. DePuy Gulf size 4 high offset stem. 5. Biolox Delta 36 mm ceramic femoral head with +5 offset. INDICATIONS: Ms. Albright is a 55-year-old female who underwent a total hip arthroplasty yesterday by myself. She was doing well until she was having her NEVIN stockings placed this afternoon when she felt a pop in her hip. When she tried to get out of bed, she felt a bigger pop. X-rays were obtained showing an anterior dislocation. Cross-table lateral x-ray showed that her acetabular component was overanteverted. I had a long discussion with her about the risks and benefits of surgery, alternatives to surgery including simple closed reduction. I recommended revision total hip arthroplasty as with only a simple closed reduction as she would be at increased risk of recurrent prosthetic instability. The patient elected to proceed with surgery. All questions were answered, informed consent was signed. OPERATIVE FINDINGS: Components from her previous surgery were removed. The acetabular component was repositioned. We upsized her from a 32 to a 36 mm femoral head, and upsized her femoral component from to a size 3 to a size 4 high offset Gulf femoral stem. We had a good stability exam at the conclusion of the case. DESCRIPTION OF OPERATION: The patient was identified in the preoperative holding area where our surgical site was marked. She was brought back to the main operating room where she was placed on the operating room table and general anesthesia was administered. All bony prominences were padded. Perioperative antibiotics were administered. She was prepped and draped in the normal sterile fashion. Prior to incision, a multidisciplinary timeout was called. All in the room were in agreement. We began by opening up her previous incision. We removed all the suture material in layers. Charnley bow was placed. Hematoma was evacuated and the hip was irrigated out. Next, the #2 Vicryl sutures through the greater trochanter were removed. We were able to visualize the hip that was anteriorly dislocated. Hip was then reduced. We could visualize that there was some impingement between the posterior superior acetabular rim and the femoral neck. This was consistent with the x-ray findings. We therefore dislocated the hip posteriorly and removed the femoral component without difficulty. The acetabulum was exposed. The polyethylene liner was removed. The screw up into the pelvis was then removed. The acetabular shell was overanteverted and removed. We then inspected the acetabulum. She had a 52 cup in previously. There was still some sclerotic bone along the very outer margins, which would allow us to go up to a 54. I then reamed with a 52, then the 53, and then just touched the outer rim with the 54 reamer. I then impacted a new 54 Gription acetabular shell. Great care was taken to optimize the anteversion of this component, at about 20 degrees of anteversion and 40 degrees of lateral opening. The neutral trial liner was then placed. The femur was exposed. We put the 3 broach in and it sat down just a little bit farther than it had yesterday. There was space to go up to a size 4 on her post-op x-ray. Therefore, I placed the reamer first and then the 4 broach. I got the broach to sit about 2 mm above the calcar. I then placed a high offset neck and a +5 head. Hip was atraumatically reduced. We checked her stability exam. There was no impingement in extension, external rotation now unless I hyperextended her past about 25 degrees. This is a nonphysiologic position and not expected to cause her any problems. She was stable in the sleeper position. At 90 degrees of hip flexion, she could be internally rotated approximately 50 degrees before leaving out of the cup. I was very happy with the stability exam. Therefore, the femoral trial was removed. The acetabulum was re-exposed. The neutral liner was removed and the real polyethylene neutral liner was opened up and impacted down into position. The locking mechanism was checked to ensure it is engaged, which it had. Next, the femur was re-exposed. The femoral canal was irrigated and dried. The real size 4 high offset Gulf stem was opened up and impacted down into position. It sat about 1 mm more proud than the broach. Therefore, I placed a 1.5 femoral trial and reduced the hip. We took fluoroscopy films. It looked like her offset was a little bit less than her other side. Furthermore stability exam was not quite as good as it was with the +5; however, the acetabular component was in excellent position, much improved from what she was before. I then removed the +1.5 femoral head and switched this to a +5 head. The hip was then reduced and stability exam was rechecked and was the same as it had previously been. Therefore, the 36 mm ceramic femoral head with a +5 offset was opened up and impacted onto the trunnion, which had been cleaned and dried. The hip was atraumatically reduced. We then began to close. The posterior capsular layer was repaired through a drill hole in the posterior aspect of the greater trochanter for the inferior limb and through the abductor tendon for the superior limb. This was with #2 Vicryl suture. The fascia was run with looped #1 PDS. #1 PDS was used for the subcutaneous layer. 2-0 Vicryl was used in the deep dermal layer. ZipLine and Dermabond was used for the skin. Compressive dressing was placed. The patient was awoken from anesthesia and then transferred to the recovery room in stable condition. POSTOPERATIVE COURSE: The patient will be readmitted to the floor. She will resume her aspirin for DVT prophylaxis. She will be on anterior hip precautions, wearing a hip brace that limits her range of motion from 10 degrees of flexion up to 80 degrees of flexion. She will wear this for 6 weeks. Job ID: [id number] [facility]
== END 2020-12-31 14:50 | disposition home health service (06) | DRG 467 ==
LOC: ASU 04:59 → 3E 04:59